=== PATIENT | female | born 2005 | race Hispanic/Latino ===

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

== ENCOUNTER 2025-03-11 23:37 | Emergency (ER) | payer OTHER ==
--- OUTSIDE RECORDS SUMMARY | 2025-03-11 23:47 | XMS REPORT | Continuity of Care Document ---
Author Name Unknown Address [address] [place] [address] [address] [place] [address] [facility] Address [address] [facility] [address] [place] [address] Care Team Providers Care Executive Cyber Leader Name Role Phone Farhana Cronin Primary Care Physician Allergies, Adverse Reactions, Alerts Allergy Name Allergy Type Status Severity Reaction(s) Onset Date Inactive Date Treating Clinician Comments Source Sea Food (Not Checked) Propensi ty to adverse reaction to drug Inactiv e 07-03 00:00: 00 Dionisio Hamm Medications Ordered Medication Name Filled Medication Name Start Date Stop Date Current Medication? Ordering Clinician Indication Dosage Frequency Signature (SIG) Comments Components Source omeprazole 40 mg capsule,del ayed release 4-11 00:00: 00 Yes 1mg Dionisio Hamm cetirizine 10 mg tablet 18 00:00: 00 Yes 1mg Dionisio Hamm Flonase Allergy Relief 50 mcg/actuati on nasal spray,suspe nsion 18 00:00: 00 Yes 12mcg/a ctuatio n Dionisio Hamm spironolact one 25 mg tablet 2023-11 00:00: 00 Yes 1mg Dionisio Hamm doxycycline monohydrate 100 mg capsule 2023-11 0 00:00: 00 Yes 1mg Dionisio Hamm metronidazo le 500 mg tablet - 00:00: 00 Yes 1mg Dionisio Hamm TAKE 10 ML EVERY 6-8 HOURS FOR COUGH AND CONGESTION 2021-11- 00:00: 00 No TAKE 10 ML EVERY 6-8 HOURS FOR COUGH AND CONGESTION 2021-11 00:00: 00 Yes Dionisio Hamm CETIRIZINE TAB 10MG 2021-11 00:00: 00 No FLUTICASONE SPR 50MCG 2021-11 00:00: 00 No CETIRIZINE TAB 10MG 2021-11 00:00: 00 Yes Dionisio Hamm FLUTICASONE SPR 50MCG 2021-11 00:00: 00 Yes Dionisio Hamm erythromyci n 5 mg/gram (0.5 %) eye ointment 01-26 00:00: 00 No 1(0.5 %) erythromyci n 5 mg/gram (0.5 %) eye ointment 01-26 00:00: 00 No 1(0.5 %) erythromyci n 5 mg/gram (0.5 %) eye ointment 01-26 00:00: 00 Yes 1(0.5 %) Dionisio Hamm Augmentin 500 mg-125 mg tablet 12-31 00:00: 00 No 1mg Augmentin 500 mg-125 mg tablet 12-31 00:00: 00 No 1mg Augmentin 500 mg-125 mg tablet 12-31 00:00: 00 Yes 1mg Dionisio Hamm amoxicillin 400 mg/5 mL oral suspension 01-21 00:00: 00 No 1mg/5 mL amoxicillin 400 mg/5 mL oral suspension 01-21 00:00: 00 No 1mg/5 mL amoxicillin 400 mg/5 mL oral suspension 01-21 00:00: 00 Yes 1mg/5 mL Dionisio Treviño Hansel amoxicillin 400 mg/5 mL oral suspension 04-09 00:00: 00 No 5mg/5 mL amoxicillin 400 mg/5 mL oral suspension 04-09 00:00: 00 No 5mg/5 mL amoxicillin 400 mg/5 mL oral suspension 04-09 00:00: 00 Yes 5mg/5 mL Dionisio Hamm Immunizations Ordered Immunization Name Filled Immunization Name Date Status Comments Source meningococcal MCV4P meningococcal MCV4P 00:00:00 Completed Dionisio Hamm meningococcal MCV4P 2021-07-03 00:00:00 Completed meningococcal MCV4P 2021-07-03 00:00:00 Completed HPV9 HPV9 2019-07-18 00:00:00 Completed Dionisio Hamm HPV9 2019-07-18 00:00:00 Completed HPV9 2019-07-18 00:00:00 Completed Tdap Tdap 2017-07-15 00:00:00 Completed Dionisio Hamm HPV, quadrivalent HPV, quadrivalent 2017-07-15 00:00:00 Completed Dionisio Hamm meningococcal MCV4P meningococcal MCV4P 00:00:00 Completed Dionisio Hamm Tdap 2017-07-15 00:00:00 Completed HPV, quadrivalent 2017-07-15 00:00:00 Completed meningococcal MCV4P 2017-07-15 00:00:00 Completed Tdap 2017-07-15 00:00:00 Completed HPV, quadrivalent 2017-07-15 00:00:00 Completed meningococcal MCV4P 2017-07-15 00:00:00 Completed Hep A, ped/adol, 2 dose Hep A, ped/adol, 2 dose 2009-08-27 00:00:00 Completed Dionisio Hamm Influenza, seasonal, inj Influenza, seasonal, inj 2009-08-27 00:00:00 Completed Dionisio Hamm varicella varicella 2009-08-27 00:00:00 Completed Dionisio Hamm Hep A, ped/adol, 2 dose 2009-08-27 00:00:00 Completed Influenza, seasonal, inj 2009-08-27 00:00:00 Completed varicella 2009-08-27 00:00:00 Completed Hep A, ped/adol, 2 dose 2009-08-27 00:00:00 Completed Influenza, seasonal, inj 2009-08-27 00:00:00 Completed varicella 2009-08-27 00:00:00 Completed DTaP DTaP 2009-07-25 00:00:00 Completed Dionisio Hamm MMR MMR 2009-07-25 00:00:00 Completed Dionisio Hamm Pneumococcal conjugate P Pneumococcal conjugate P 2009-07-25 00:00:00 Completed Dionisio Hamm IPV IPV 2009-07-25 00:00:00 Completed Dionisio Hamm DTaP 2009-07-25 00:00:00 Completed MMR 2009-07-25 00:00:00 Completed Pneumococcal conjugate P 2009-07-25 00:00:00 Completed IPV 2009-07-25 00:00:00 Completed DTaP 2009-07-25 00:00:00 Completed MMR 2009-07-25 00:00:00 Completed Pneumococcal conjugate P 2009-07-25 00:00:00 Completed IPV 2009-07-25 00:00:00 Completed Hep A, ped/adol, 2 dose Hep A, ped/adol, 2 dose 2007-12-23 00:00:00 Completed Dionisio Hamm Hep A, ped/adol, 2 dose 2007-12-23 00:00:00 Completed Hep A, ped/adol, 2 dose 2007-12-23 00:00:00 Completed DTaP DTaP 2006-05-19 00:00:00 Completed Dionisio Hamm Hib (PRP-OMP) Hib (PRP-OMP) 2006-05-19 00:00:00 Completed Dionisio Hamm MMRV MMRV 2006-05-19 00:00:00 Completed Dionisio Hamm Pneumococcal conjugate P Pneumococcal conjugate P 2006-05-19 00:00:00 Completed Dionisio Hamm DTaP 2006-05-19 00:00:00 Completed Hib (PRP-OMP) 2006-05-19 00:00:00 Completed MMRV 2006-05-19 00:00:00 Completed Pneumococcal conjugate P 2006-05-19 00:00:00 Completed DTaP 2006-05-19 00:00:00 Completed Hib (PRP-OMP) 2006-05-19 00:00:00 Completed MMRV 2006-05-19 00:00:00 Completed Pneumococcal conjugate P 2006-05-19 00:00:00 Completed DTaP-Hep B-IPV DTaP-Hep B-IPV 2005-06-23 00:00:00 Completed Dionisio Hamm Hib (PRP-OMP) Hib (PRP-OMP) 2005-06-23 00:00:00 Completed Dionisio Hamm Pneumococcal conjugate P Pneumococcal conjugate P 2005-06-23 00:00:00 Completed Dionisio Hamm DTaP-Hep B-IPV 2005-06-23 00:00:00 Completed Hib (PRP-OMP) 2005-06-23 00:00:00 Completed Pneumococcal conjugate P 2005-06-23 00:00:00 Completed DTaP-Hep B-IPV 2005-06-23 00:00:00 Completed Hib (PRP-OMP) 2005-06-23 00:00:00 Completed Pneumococcal conjugate P 2005-06-23 00:00:00 Completed DTaP-Hep B-IPV DTaP-Hep B-IPV 2005-04-22 00:00:00 Completed Dionisio Hamm Hib (PRP-OMP) Hib (PRP-OMP) 2005-04-22 00:00:00 Completed Dionisio Kamila Hamm Pneumococcal conjugate P Pneumococcal conjugate P 2005-04-22 00:00:00 Completed Dionisio Hamm DTaP-Hep B-IPV 2005-04-22 00:00:00 Completed Hib (PRP-OMP) 2005-04-22 00:00:00 Completed DTaP-Hep B-IPV 2005-04-22 00:00:00 Completed Hib (PRP-OMP) 2005-04-22 00:00:00 Completed Pneumococcal conjugate P 2005-04-22 00:00:00 Completed Pneumococcal conjugate P 2005-04-22 00:00:00 Completed DTaP-Hep B-IPV DTaP-Hep B-IPV 2005-02-17 00:00:00 Completed Dionisio Hamm Hib (PRP-OMP) Hib (PRP-OMP) 2005-02-17 00:00:00 Completed Dionisio Kamila Hamm Pneumococcal conjugate P Pneumococcal conjugate P 2005-02-17 00:00:00 Completed Dionisio Hamm Hib (PRP-OMP) 2005-02-17 00:00:00 Completed Pneumococcal conjugate P 2005-02-17 00:00:00 Completed DTaP-Hep B-IPV 2005-02-17 00:00:00 Completed Hib (PRP-OMP) 2005-02-17 00:00:00 Completed Pneumococcal conjugate P 2005-02-17 00:00:00 Completed DTaP-Hep B-IPV 2005-02-17 00:00:00 Completed Hep B, adolescent or ped Hep B, adolescent or ped 2004 00:00:00 Completed Dionisio Hamm Hep B, adolescent or ped 2004 00:00:00 Completed Hep B, adolescent or ped 2004 00:00:00 Completed Vital Signs Vital Name Observation Time Observation Value Comments Re haney BP Systolic 2025-03-10 17:45:00 123 mm[Hg] Dennis Hamm BP Diastolic 2025-03-10 17:45:00 80 mm[Hg] Justin Hamm Weight Measured 2025-03-10 17:45:00 139.60 pounds Dionisio Hamm Height Measured 2025-03-10 17:45:00 62.50 inches Dionisio F Hansel Body Temperature 2025-03-10 17:45:00 98.50 degrees Dionisio F Hansel Heart Rate 2025-03-10 17:45:00 82.00 /min Paulina en F Hansel Respiratory Rate 2025-03-10 17:45:00 18.00 /min Dionisio F Hansel BP Systolic 2025-01-16 18:03:00 128 mm[Hg] Step hen F Hansel BP Diastolic 2025-01-16 18:03:00 85 mm[Hg] Justin phen F Hansel Weight Measured 2025-01-16 18:03:00 140.60 pounds Dionisio F Hansel Height Measured 2025-01-16 18:03:00 62.50 inches Dionisio F Hansel Body Temperature 2025-01-16 18:03:00 98.20 degrees Dionisio F Hansel Heart Rate 2025-01-16 18:03:00 81.00 /min Paulina en F Hansel Respiratory Rate 2025-01-16 18:03:00 18.00 /min Dionisio F Hansel BP Systolic 2024-09-20 15:23:00 121 mm[Hg] Step hen F Hansel BP Diastolic 2024-09-20 15:23:00 81 mm[Hg] Justin phen F Hansel Weight Measured 2024-09-20 15:23:00 129.20 pounds Dionisio F Hansel Height Measured 2024-09-20 15:23:00 62.50 inches Dionisio F Hansel Body Temperature 2024-09-20 15:23:00 97.90 degrees Dionisio F Hansel Heart Rate 2024-09-20 15:23:00 72.00 /min Paulina en F Hansel Respiratory Rate 2024-09-20 15:23:00 18.00 /min Dionisio F Hansel Body Temperature 2024-04-02 12:58:00 98.20 degrees Dionisio F Hansel Heart Rate 2024-04-02 12:58:00 71.00 /min Paulina en F Hansel Respiratory Rate 2024-04-02 12:58:00 16.00 /min Dionisio F Hansel BP Systolic 2024-04-02 12:58:00 129 mm[Hg] Step hen F Hansel BP Diastolic 2024-04-02 12:58:00 84 mm[Hg] Justin phen F Hansel Weight Measured 2024-04-02 12:58:00 121.20 pounds Dionisio F Hansel Height Measured 2024-04-02 12:58:00 62.50 inches Dionisio F Hansel BP Systolic 2022-10-20 16:31:00 114 mm[Hg] Step hen F Hansel BP Diastolic 2022-10-20 16:31:00 74 mm[Hg] Justin phen F Hansel Weight Measured 2022-10-20 16:31:00 117.60 pounds Dionisio F Hansel Height Measured 2022-10-20 16:31:00 62.50 inches Dionisio F Hansel Body Temperature 2022-10-20 16:31:00 97.80 degrees Dionisio F Hansel Heart Rate 2022-10-20 16:31:00 75.00 /min Paulina en F Hansel Respiratory Rate 2022-10-20 16:31:00 Dionisio F Hansel BP Systolic 2022-08-28 10:16:00 121 mm[Hg] Step hen F Hansel BP Diastolic 2022-08-28 10:16:00 77 mm[Hg] Justin phen F Hansel Weight Measured 2022-08-28 10:16:00 119.00 pounds Dionisio F Hansel Height Measured 2022-08-28 10:16:00 65.40 inches Dionisio F Hansel Body Temperature 2022-08-28 10:16:00 98.20 degrees Dionisio F Hansel Heart Rate 2022-08-28 10:16:00 94.00 /min Paulina en F Hansel Respiratory Rate 2022-08-28 10:16:00 18.00 /min Dionisio F Hansel BP Systolic 2021-07-03 10:01:00 111 mm[Hg] Step hen F Hansel BP Diastolic 2021-07-03 10:01:00 72 mm[Hg] Jsutin phen F Hansel Weight Measured 2021-07-03 10:01:00 117.00 pounds Dionisio F Hansel Height Measured 2021-07-03 10:01:00 62.40 inches Dionisio F Hansel Body Temperature 2021-07-03 10:01:00 98.70 degrees Dionisio F Hansel Heart Rate 2021-07-03 10:01:00 80.00 /min Paulina en F Hansel Respiratory Rate 2021-07-03 10:01:00 Dionisio F Hansel BP Systolic 2020-01-26 08:42:00 119 mm[Hg] Step hen F Hansel BP Diastolic 2020-01-26 08:42:00 77 mm[Hg] Justin phen F Hansel Weight Measured 2020-01-26 08:42:00 117.00 pounds Dionisio F Hansel Height Measured 2020-01-26 08:42:00 62.20 inches Dionisio F Hansel Body Temperature 2020-01-26 08:42:00 99.10 degrees Dionisio F Hansel Heart Rate 2020-01-26 08:42:00 76.00 /min Paulina en F Hansel Respiratory Rate 2020-01-26 08:42:00 16.00 /min Dionisio F Hansel Body Temperature 2019-09-26 14:56:00 98.50 degrees Dionisio F Hansel Heart Rate 2019-09-26 14:56:00 84.00 /min Paulina en F Hansel Respiratory Rate 2019-09-26 14:56:00 Dionisio F Hansel BP Systolic 2019-09-26 14:56:00 111 mm[Hg] Step hen F Hansel BP Diastolic 2019-09-26 14:56:00 75 mm[Hg] Justin phen F Hansel Weight Measured 2019-09-26 14:56:00 110.80 pounds Dionisio F Hansel Height Measured 2019-09-26 14:56:00 62.40 inches Dionisio F Hansel BP Systolic 2019-07-18 15:48:00 110 mm[Hg] Step hen F Hansel BP Diastolic 2019-07-18 15:48:00 79 mm[Hg] Justin phen F Hansel Weight Measured 2019-07-18 15:48:00 109.00 pounds Dionisio F Hansel Height Measured 2019-07-18 15:48:00 62.01 inches Dionisio F Hansel Body Temperature 2019-07-18 15:48:00 98.10 degrees Dionisio F Hansel Heart Rate 2019-07-18 15:48:00 74.00 /min Paulina en F Hansel Respiratory Rate 2019-07-18 15:48:00 18.00 /min Dionisio F Hansel BP Systolic 2018-12-31 13:50:00 126 mm[Hg] Step hen F Hansel BP Diastolic 2018-12-31 13:50:00 84 mm[Hg] Justin phen F Hansel Weight Measured 2018-12-31 13:50:00 110.40 pounds Dionisio F Hansel Height Measured 2018-12-31 13:50:00 62.00 inches Dionisio F Hansel Body Temperature 2018-12-31 13:50:00 98.50 degrees Dionisio F Hansel Heart Rate 2018-12-31 13:50:00 87.00 /min Paulina en F Hansel Respiratory Rate 2018-12-31 13:50:00 18.00 /min Dionisio F Hansel BP Systolic 2018-07-27 16:12:00 118 mm[Hg] Step hen F Hansel BP Diastolic 2018-07-27 16:12:00 63 mm[Hg] Justin phen F Hansel Weight Measured 2018-07-27 16:12:00 104.60 pounds Dionisio F Hansel Height Measured 2018-07-27 16:12:00 62.00 inches Dionisio F Hansel Body Temperature 2018-07-27 16:12:00 98.20 degrees Dionisio F Hansel Heart Rate 2018-07-27 16:12:00 76.00 /min Paulina en F Hansel Respiratory Rate 2018-07-27 16:12:00 18.00 /min Dionisio F Hansel BP Systolic 2018-01-21 16:44:00 115 mm[Hg] Step hen F Hansel BP Diastolic 2018-01-21 16:44:00 73 mm[Hg] Justin phen F Hansel Weight Measured 2018-01-21 16:44:00 105.60 pounds Dionisio F Hansel Height Measured 2018-01-21 16:44:00 61.00 inches Dionisio F Hansel Body Temperature 2018-01-21 16:44:00 98.40 degrees Dionisio F Hansel Heart Rate 2018-01-21 16:44:00 84.00 /min Paulina en F Hansel Respiratory Rate 2018-01-21 16:44:00 16.00 /min Dionisio F Hansel BP Systolic 2017-07-15 10:30:00 122 mm[Hg] BP Diastolic 2017-07-15 10:30:00 81 mm[Hg] Weight Measured 2017-07-15 10:30:00 98.60 pounds Height Measured 2017-07-15 10:30:00 60.00 inches Body Temperature 2017-07-15 10:30:00 98.10 degrees Heart Rate 2017-07-15 10:30:00 101.00 /min Respiratory Rate 2017-07-15 10:30:00 16.00 /min Weight Measured 2017-04-09 11:14:00 98.60 pounds Height Measured 2017-04-09 11:14:00 60.00 inches Body Temperature 2017-04-09 11:14:00 98.50 degrees Heart Rate 2017-04-09 11:14:00 94.00 /min Respiratory Rate 2017-04-09 11:14:00 18.00 /min BP Systolic 2017-04-09 11:14:00 114 mm[Hg] BP Diastolic 2017-04-09 11:14:00 78 mm[Hg] Plan of Care Planned Activity Planned Date Details Comments Source Goal Plan of Care Note [code = 21028-6] Goal Plan of Care Note [code = 15177-2] Goal Plan of Care Note [code = 72716-1] Goal Plan of Care Note [code = 24456-7] Goal Plan of Care Note [code = 31665-4] Goal Plan of Care Note [code = 46299-4] Goal Plan of Care Note [code = 72923-9] Goal Plan of Care Note [code = 83678-2] Goal Plan of Care Note [code = 92238-5] Goal Plan of Care Note [code = 56075-9] Goal Plan of Care Note [code = 40048-6] Goal Plan of Care Note [code = 92153-0] Goal Plan of Care Note [code = 44385-0] Goal Plan of Care Note [code = 45034-6] Goal Plan of Care Note [code = 95786-2] Goal Plan of Care Note [code = 15428-3] Goal Plan of Care Note [code = 36982-2] Goal Plan of Care Note [code = 83795-7] Goal Plan of Care Note [code = 46440-7] Goal Plan of Care Note [code = 29559-5] Goal Plan of Care Note [code = 73124-2] Goal Plan of Care Note [code = 81491-4] Goal Plan of Care Note [code = 89710-5] Goal Plan of Care Note [code = 25360-9] Goal Plan of Care Note [code = 28287-3] Goal Plan of Care Note [code = 09213-6] Goal Plan of Care Note [code = 13884-4] Goal Plan of Care Note [code = 55911-0] Goal Plan of Care Note [code = 51600-6] Goal Plan of Care Note [code = 39449-5] Encounters Start Date/Time End Date/Time Encounter Type Admission Type Attending [facility] Care Department Encounter ID Source 2025-03-11 11:36:11 2025-03-11 11:36:11 Outpatient [facility] [id number] Dionisio Hamm 2025-03-10 17:42:29 2025-03-10 17:42:29 Outpatient S[facility] [id number] Dionisio Hamm 2025-03-10 00:00:00 2025-03-10 00:00:00 Outpatient Visit SFA [id number] Dionisio Hamm 2025-01-16 17:54:35 2025-01-16 17:54:35 Outpatient SFA [facility] [id number] Dionisio Hamm 2025-01-16 00:00:00 2025-01-16 00:00:00 Outpatient Visit SFA [id number] Dionisio Hamm 2024-09-20 15:22:54 2024-09-20 15:22:54 Outpatient S[facility] [id number] Dionisio Hamm 2024-04-02 12:45:17 2024-04-02 12:45:17 Outpatient S[facility] [id number] Dionisio Hamm 2024-04-02 00:00:00 2024-04-02 00:00:00 Outpatient Visit SFA [id number] Dionisio Hamm 2022-10-20 16:34:13 2022-10-20 16:34:13 Outpatient SFA S[facility] [id number] Dionisio Hamm 2022-10-07 16:22:05 2022-10-07 16:22:05 Outpatient SFA S[facility] [id number] Dionisio Hamm 2022-10-07 00:00:00 2022-10-07 00:00:00 Outpatient Visit [id number] 2022-08-28 00:00:00 2022-08-28 00:00:00 Outpatient Visit [id number] Results Test Description Test Time Test Comments Results Result Co mments Source VAGINAL PATHOGENS DNA [id number] 11:20:23* Test Item Value Reference Range Interpretation Comme nts SAMIRA SPECIES (test code = ) NEGATIVE NEGATIVE G. VAGINALIS (test code = 62935) POSITIVE NEGATIVE A T. VAGINALIS (test code = 11673) NEGATIVE NEGATIVE Note: [facility] VPIII Microbial Identification Testis a DNA probe test intended for use in the detectionand identification of Samira species, Gardnerellavaginalis and Trichomonas vaginalis nucleic acid. VAGINAL PATHOGENS DNA [id number] 00:00:00* Test Item Value Reference Range Interpretation Comme nts SAMIRA SPECIES (test code = ) NEGATIVE G. VAGINALIS (test code = 72845) POSITIVE T. VAGINALIS (test code = 17676) NEGATIVE Dionisio F AustinCT/NG, NAAT, [id number] 00:00:00* Test Item Value Reference Range Interpretation Comme nts CHLAMYDIA, NAAT, URINE (test code = 81588) NEGATIVE GONORRHEA, NAAT, URINE (test code = 81841) NEGATIVE Dionisio Kamila AustinVAGINAL PATHOGENS DNA [id number] 00:00:00* Test Item Value Reference Range Interpretation Comme nts SAMIRA SPECIES (test code = 33559) NEGATIVE G. VAGINALIS (test code = 80657) POSITIVE T. VAGINALIS (test code = 21600) NEGATIVE Dionisio F AustinCT/NG, NAAT, [id number] 00:00:00* Test Item Value Reference Range Interpretation Comme nts CHLAMYDIA, NAAT, URINE (test code = 27144) NEGATIVE GONORRHEA, NAAT, URINE (test code = 82210) NEGATIVE Dionisio F AustinVAGINAL PATHOGENS DNA [id number] 00:00:00* Test Item Value Reference Range Interpretation Comme nts SAMIRA SPECIES (test code = 35517) NEGATIVE G. VAGINALIS (test code = 63140) POSITIVE T. VAGINALIS (test code = 15164) NEGATIVE Dionisio HammCT/NG, NAAT, [id number] 00:00:00* Test Item Value Reference Range Interpretation Comme nts CHLAMYDIA, NAAT, URINE (test code = 79041) NEGATIVE GONORRHEA, NAAT, URINE (test code = 91329) NEGATIVE Dionisio Hamm Notes Date/Time Note Provider Source Dionisio Hamm [facility]2025-02-17 00:00:[address] [facility]2024-05-04 00:00:[address] [facility]
[2025-03-12] MEDS ORDERED: NA CHLORIDE 0.9% 1,000 ML ONE (00:14)
[2025-03-12 00:38] LABS: Absolute Eosinophils 0.1 K/uL (0-0.5); Absolute Lymphocytes (CBC) 1.8 K/uL (0.7-4.9); Absolute Monocytes 0.4 K/uL (0.1-1.3); Absolute Neutrophil 6.8 K/uL (1.8-8.0); Basophils % 0.4 % (0-1.3); Eosinophils % 1.3 % (0-4.4); Hematocrit 40.9 % (36.0-45.0); Hemoglobin 14.1 g/dL (12.0-15.0); Lymphocytes % 19.3 % (15.3-44.8); MCH 29.7 pg (27.0-35.0); MCHC 34.4 g/dL (32.0-36.0); MCV 86.3 fL (80-100); MPV 10.3 fL (7.6-11.3); Monocytes % 4.8 % (3.3-12.3); Neutrophils % 74.2 % (41.7-73.7); Nucleated Red Blood Cells % 0.1 % (0-0); Platelets 233 thou/uL (152-406); RBC Red Blood Cell Count 4.74 M/uL (3.86-4.86); Red Cell Distribution Width 13.1 % (12.1-15.2)
[2025-03-12 00:55] LABS: Albumin 4.3 g/dL (3.4-5.0); Albumin/Globulin Ratio 1.1 (1.1-1.8); Anion Gap 9.4 mEq/L (5.0-15.0); Bilirubin Total 0.7 mg/dL (0.2-1.0); Globulin 3.8 g/dL (2.3-3.5); Potassium 3.4 mEq/L (3.5-5.1); Protein, Total 8.1 g/dL (6.4-8.2)
[2025-03-12 01:03] LABS: Specific Gravity 1.006 (1.005-1.030); Sqamous Epithelial <5 /HPF (None Seen); Urine Bacteria <20 /HPF (<20); Urine Bilirubin NEGATIVE (Negative); Urine Blood Negative (Negative); Urine Clarity Turbid (Clear); Urine Color Colorless (Yellow); Urine Crystals Unidentified Few /HPF (None Seen); Urine Culture Reflex Order NOT NEEDED; Urine Glucose NEGATIVE (Negative); Urine Ketones 1+ (Negative); Urine Microscopic Reflex YN ORDER UMIC; Urine Mucus Slight /HPF (None Seen); Urine Nitrite NEGATIVE (Negative); Urine Protein NEGATIVE (Negative); Urine RBC <5 /HPF (None Seen); Urine Urobilinogen Normal (Normal); Urine WBC <5 /HPF (<5); Urine WBC Clump Rare /HPF (None Seen); Urine Yeast (Budding) Trace /HPF (None Seen)
[2025-03-12 01:04] LABS: Specific Gravity 1.006 (1.005-1.030)
--- NOTE | 2025-03-12 01:19 | RAD REPORT ---
EXAM DESCRIPTION: Abdomen Exam Limited RadLex: US ABDOMEN LIMITED CLINICAL HISTORY: 19 years Female, RUQ;Abd pain COMPARISON: None. FINDINGS: Limited grayscale images of the gallbladder were obtained. No shadowing gallstones. No wall thickenin g or pericholecystic fluid collections. IMPRESSION: No sonographic abnormality of the gallbladder. Electronically signed by: Hafsa Silva MD 03/12/2025 01:15 AM CDT RP Due to temporary technical issues with the PACS/Oyster scribe reporting system, reports are being sign ed by the in-house radiologist without review as a courtesy to ensure prompt reporting the interpreting rad iologist is fully responsible for the content of the report. Transcribed Date/Time: 03/12/2025 1:19 AM
--- NOTE | 2025-03-12 03:41 | ER ---
Nurse's Notes [facility] Name: Alexa Alexander Age: 19 yrs Sex: Female : 2005 Arrival Date: 03/11/2025 Time: 23:37 Bed 5 Private MD: Diagnosis: Abdominal pain Presentation: 03/11 23:49 Chief complaint: Patient states: MID EPIGASTRIC AND RIGHT UPPER QUADRANT PAIN. NAUSEA. ha1 23:49 Coronavirus screen: Client denies travel out of the [place] in the last 14 days. Ebola ha1 Screen: No symptoms or risks identified at this time. Initial Sepsis Screen: Does the patient meet any 2 criteria? No. Patient's initial sepsis screen is negative. Initial Sepsis Screen: Does the patient have a suspected source of infection? No. Patient's initial sepsis screen is negative. Risk Assessment: Do you want to hurt yourself or someone else? Patient reports no desire to harm self or others. 23:49 Method Of Arrival: Ambulatory ha1 03/12 03:50 Onset of symptoms was March 11, 2025. cp4 03:50 Acuity: PHUONG 3 cp4 Triage Assessment: 00:11 General: Appears uncomfortable, Behavior is calm, cooperative. Pain: Complains of pain ha1 in epigastric area and right upper quadrant Pain currently is 8 out of 10 on a pain scale. Quality of pain is described as aching. Neuro: Level of Consciousness is awake, alert, obeys commands, Oriented to person, place, time, situation. Cardiovascular: Capillary refill < 3 seconds Patient's skin is warm and dry. Respiratory: Airway is patent Respiratory effort is even, unlabored, Respiratory pattern is regular, symmetrical. GI: Abdomen is round non-distended, Reports upper abdominal pain, epigastric pain, nausea. MOTHER REPAIRER: 03:50 Not cp4 Historical: - Allergies: 00:11 No Known Allergies; ha1 - PMHx: 00:11 None; ha1 - Immunization history:: Adult Immunizations up to date. - Infectious Disease History:: Denies. - Social history:: Smoking status: Patient denies any tobacco usage or history of. Screenin:13 Abuse screen: Denies threats or abuse. Denies injuries from another. Nutritional ha1 screening: No deficits noted. Tuberculosis screening: No symptoms or risk factors identified. 00:16 [facility] ED Fall Risk Assessment (Adult) History of falling in the last 3 months, cp4 including since admission No falls in past 3 months (0 pts) Confusion or Disorientation No (0 pts) Intoxicated or Sedated No (0 pts) Impaired Gait No (0 pts) Mobility Assist Device Used No (0 pt) Altered Elimination No (0 pt) Score/Fall Risk Level 0 - 2 = Low Risk Oriented to surroundings, Maintained a safe environment, Assessed \T\ reinforced patient's understanding of fall precautions, Hourly rounding (assess needs \T\ fall precautionary measures) done. Assessment: 00:16 General: Appears in no apparent distress. comfortable, Behavior is calm, cooperative, cp4 appropriate for age. Pain: Complains of pain in abdomen and right upper quadrant and epigastric area Pain does not radiate. Pain currently is 6 out of 10 on a pain scale. Neuro: Level of Consciousness is awake, alert, obeys commands, Oriented to person, place, time, situation. Cardiovascular: Patient's skin is warm and dry. Respiratory: Airway is patent Respiratory effort is even, unlabored. GI: Bowel sounds present X 4 quads. Abd is soft and non tender X 4 quads. Reports epigastric pain, nausea. : No signs and/or symptoms were reported regarding the genitourinary system. EENT: No signs and/or symptoms were reported regarding the EENT system. Derm: No signs and/or symptoms reported regarding the dermatologic system. Musculoskeletal: No signs and/or symptoms reported regarding the musculoskeletal system. Vital Signs: 03/11 23:49 BP 129 / 92; Pulse 96; Resp 18 S; Temp 98.2(O); Pulse Ox 100% on R/A; Weight 63.5 kg; ha1 Height 5 ft. 3 in. ; 03/12 01:25 BP 129 / 92; Pulse 83; Resp 18; Pulse Ox 100% ; cp4 02:00 BP 109 / 57; Pulse 92; Resp 17; Pulse Ox 99% ; jj7 03:15 BP 181 / 89; Pulse 77; Resp 19; Pulse Ox 98% ; jj7 03:49 BP 121 / 71; Pulse 79; Resp 18; Pulse Ox 99% ; cp4 03/11 23:49 Body Mass Index 24.80 (63.50 kg, 160.02 cm) [facility] ED Course: 03/11 23:38 Patient arrived in ED. rg4 23:50 Talia Sanders MD is Attending Physician. sp3 03/12 00:05 Kevin Dyer, RN is Primary Nurse. jj7 00:16 Bed in low position. Call light in reach. Side rails up X 1. cp4 00:16 No provider procedures requiring assistance completed. Initial lab(s) drawn, by nc, cp4 sent to lab. Urine collected: clean catch specimen, clear. Inserted saline lock: 20 gauge in left antecubital area, using aseptic technique. Blood collected. Flushed with 10 mL NS. 00:32 Abdomen Limited US In Process Unspecified. EDMS 01:11 CT Abd/Pelvis - IV Contrast Only In Process Unspecified. EDMS 03:49 Provided Education on: abdominal pain. cp4 03:49 intact, bleeding controlled, No redness/swelling at site. Pressure dressing applied. cp4 03:50 Triage completed. cp4 03:50 Arm band placed on right wrist. Patient placed in waiting room. cp4 Administered Medications: 00:15 Drug: NS 0.9% IV 1000 ml IV at 1 bolus Per protocol; to be given as a bolus over 60 cp4 minutes Route: IV; Rate: 1 bolus; Site: left antecubital; 03:51 Follow up: IV Status: Completed infusion cp4 Medication: 00:16 VIS not applicable for this client. cp4 Outcome: 03:39 Discharge ordered by MD. sp3 03:49 Discharged to home ambulatory, cp4 03:49 Condition: stable 03:49 Discharge instructions given to patient, family, Instructed on discharge instructions, follow up and referral plans. medication usage, Demonstrated understanding of instructions, follow-up care, medications, Prescriptions given X 1, 03:51 Patient left the ED. cp4 Signatures: Dispatcher [employer] EDIN Kathy Hernandez rg4 Talia Sanders MD MD sp3 Lilia Trotter, RN RN ha1 Kevin Dyer, RAQUEL RN Kiya Nguyen cp4
--- NOTE | 2025-03-12 03:41 | EDPHYS ---
Physician Documentation [facility] Name: Alexa Alexander Age: 19 yrs Sex: Female : 2005 Arrival Date: 03/11/2025 Time: 23:37 Bed 5 Private MD: ED Physician Talia Sanders HPI: 03/12 00:20 This 19 yrs old Female presents to ER via Ambulatory with complaints of sp3 Abdominal Pain. 00:20 19-year-old female with no past medical history presents with 5 days of epigastric pain sp3 radiating to the right upper quadrant around to her back. She denies any vomiting or diarrhea but does endorse nausea. She also denies fever, headache, chest pain, shortness of breath, lower abdominal pain, SUPERINTENDENT TERMINAL symptoms, symptoms including urinary frequency and dysuria. No history of kidney stone or other surgeries. ROS otherwise negative.. AMMUNITION OFFICER: 03:50 Not cp4 Historical: - Allergies: 00:11 No Known Allergies; ha1 - PMHx: 00:11 None; ha1 - Immunization history:: Adult Immunizations up to date. - Infectious Disease History:: Denies. - Social history:: Smoking status: Patient denies any tobacco usage or history of. ROS: 00:20 Constitutional: Negative for fever, chills, and weight loss, Eyes: Negative for injury, sp3 pain, redness, and discharge, ENT: Negative for injury, pain, and discharge, Neck: Negative for injury, pain, and swelling, Cardiovascular: Negative for chest pain, palpitations, and edema, Respiratory: Negative for shortness of breath, cough, wheezing, and pleuritic chest pain, Back: Negative for injury and pain, : Negative for injury, bleeding, discharge, and swelling, MS/Extremity: Negative for injury and deformity, Skin: Negative for injury, rash, and discoloration, Neuro: Negative for headache, weakness, numbness, tingling, and seizure, Psych: Negative for depression, anxiety, suicide ideation, homicidal ideation, and hallucinations, Allergy/Immunology: Negative for hives, rash, and allergies, Endocrine: Negative for neck swelling, polydipsia, polyuria, polyphagia, and marked weight changes, Hematologic/Lymphatic: Negative for swollen nodes, abnormal bleeding, and unusual bruising, 00:20 All other systems are negative, Exam: 00:20 Constitutional: This is a well developed, well nourished patient who is awake, alert, sp3 and in no acute distress. Head/Face: Normocephalic, atraumatic. Eyes: Pupils equal round and reactive to light, extra-ocular motions intact. Lids and lashes normal. Conjunctiva and sclera are non-icteric and not injected. Cornea within normal limits. Periorbital areas with no swelling, redness, or edema. ENT: Nares patent. No nasal discharge, no septal abnormalities noted. External auditory canals are clear. Oropharynx with no redness, swelling, or masses, exudates, or evidence of obstruction, uvula midline. Mucous membranes moist. Neck: Trachea midline, no thyromegaly or masses palpated, and no cervical lymphadenopathy. Supple, full range of motion without nuchal rigidity, or vertebral point tenderness. No Meningismus. Chest/axilla: Normal chest wall appearance and motion. Nontender with no deformity. No lesions are appreciated. Cardiovascular: Regular rate and rhythm with a normal S1 and S2. No gallops, murmurs, or rubs. Normal PMI, no JVD. No pulse deficits. Respiratory: Lungs have equal breath sounds bilaterally, clear to auscultation and percussion. No rales, rhonchi or wheezes noted. No increased work of breathing, no retractions or nasal flaring. Back: No spinal tenderness. No costovertebral tenderness. Full range of motion. Skin: Warm, dry with normal turgor. Normal color with no rashes, no lesions, and no evidence of cellulitis. MS/ Extremity: Pulses equal, no cyanosis. Neurovascular intact. Full, normal range of motion. Neuro: Awake and alert, GCS 15, oriented to person, place, time, and situation. Cranial nerves II-XII grossly intact. Motor strength 5/5 in all extremities. Sensory grossly intact. Cerebellar exam normal. Normal gait. Psych: Awake, alert, with orientation to person, place and time. Behavior, mood, and affect are within normal limits. 00:20 Abdomen/GI: Right upper quadrant abdominal pain to palpation without peritoneal signs, rebound or guarding. Positive Wharton sign on my exam., Vital Signs: 03/11 23:49 BP 129 / 92; Pulse 96; Resp 18 S; Temp 98.2(O); Pulse Ox 100% on R/A; Weight 63.5 kg; ha1 Height 5 ft. 3 in. ; 03/12 01:25 BP 129 / 92; Pulse 83; Resp 18; Pulse Ox 100% ; cp4 02:00 BP 109 / 57; Pulse 92; Resp 17; Pulse Ox 99% ; jj7 03:15 BP 181 / 89; Pulse 77; Resp 19; Pulse Ox 98% ; jj7 03:49 BP 121 / 71; Pulse 79; Resp 18; Pulse Ox 99% ; cp4 03/11 23:49 Body Mass Index 24.80 (63.50 kg, 160.02 cm) ha1 MDM: 03/11 23:57 Medical Screening Exam initiated sp3 03/12 00:22 Data reviewed: vital signs, nurses notes, lab test result(s), radiologic studies. ED sp3 course: 19-year-old female with no past medical history presents with right upper quadrant and epigastric abdominal pain. Differential diagnosis includes cholecystitis, cholelithiasis, biliary colic, other hepatobiliary pathology, pancreatitis, gastritis, colitis and to a lesser degree UTI/pyelonephritis spectrum, kidney stone and/or chest pathology. I am not highly suspicious of aortic or acute coronary syndrome. Workup include general labs, ultrasound right upper quadrant and CT abdomen pelvis with IV contrast. Disposition pending workup and patient course. Patient declined pain medication at this time.. 03:39 ED course: Full workup negative. We will safely discharge patient home.. sp3 03/12 00:05 Order name: CBC with Diff; Complete Time: : sp3 03/12 00:05 Order name: CMP; Complete Time: : sp3 03/12 00:05 Order name: Lipase; Complete Time: : sp3 03/12 00:05 Order name: Test, Urine; Complete Time: : sp3 03/12 00:05 Order name: Urinalysis w/ reflexes; Complete Time: : sp3 03/12 00:05 Order name: Abdomen Limited US; Complete Time: 03:37 sp3 03/12 00:05 Order name: CT Abd/Pelvis - IV Contrast Only sp3 03/12 00:05 Order name: IV Saline Lock; Complete Time: 00:15 sp3 03/12 00:05 Order name: Labs collected and sent; Complete Time: 00:15 sp3 Administered Medications: 00:15 Drug: NS 0.9% IV 1000 ml IV at 1 bolus Per protocol; to be given as a bolus over 60 cp4 minutes Route: IV; Rate: 1 bolus; Site: left antecubital; 03:51 Follow up: IV Status: Completed infusion cp4 Disposition Summary: 03/12/25 03:39 Discharge Ordered Notes: Location: Home sp3 Condition: Stable sp3 Diagnosis - Abdominal pain sp3 Followup: sp3 - With: Private Physician - When: Upon discharge from the Emergency Department - Reason: Continuance of care Discharge Instructions: - Discharge Summary Sheet sp3 - Abdominal Pain, Adult sp3 Forms: - Medication Reconciliation Form sp3 - Antibiotic Education sp3 - Prescription Opioid Use sp3 - Patient Portal Instructions sp3 - Leadership Thank You Letter sp3 Prescriptions: - Tramadol 50 mg Oral Tablet - take 1 tablet ORAL route every 8 hours as needed; 12 tablet; Refills: 0, sp3 Product Selection Permitted Signatures: Dispatcher [employer] EDTalia Silva MD MD sp3 Lilia Trotter RN RN [facility] Kiya Tse cp4 Corrections: (The following items were deleted from the chart) 00:05 00:05 CBC+H.LAB.BRZ ordered. EDMS EDMS 00:05 00:05 COMPREHENSIVE METABOLIC PANEL+C.LAB.BRZ ordered. EDMS EDMS 00:05 00:05 LIPASE+C.LAB.BRZ ordered. EDMS EDMS 00:05 00:05 Test, Urine+UC.LAB.BRZ ordered. EDMS EDMS 00:05 00:05 Urinalysis+U.LAB.BRZ ordered. EDMS EDMS 00:05 00:05 Abdomen Limited+US.RAD.BRZ ordered. EDMS EDMS 00:05 00:05 Abdomen Pelvis W Con+CT.RAD.BRZ ordered. EDMS EDMS
[2025-03-12 04:03] VITALS: TEMP 98.2
[2025-03-12 04:20] VITALS: BP 121/71; O2SAT 99
--- NOTE | 2025-03-12 06:14 | RAD REPORT ---
EXAM DESCRIPTION: Abdomen Pelvis W Contrast RadLex: CT ABDOMEN PELVIS WITH IV CONTRAST CLINICAL HISTORY: 19 years Female; epigastric and RUQ pain;Abd pain; IV ONLY Bed Name: 5 TECHNIQUE: CT of the abdomen and pelvis [with] intravenous contrast. All CT scans at this facility use dose modulation, iterative reconstruction, and/or weight based dosi ng when appropriate to reduce radiation dose to as low as reasonably achievable. COMPARISON: None. FINDINGS: Lower thorax: Lung bases are clear Abdomen: Stomach: Within normal limits Liver: No focal lesions. No intrahepatic ductal distention. Gallbladder: Nondistended Pancreas: Within normal limits Spleen: Within normal limits Right kidney: No hydronephrosis. No focal lesion. Left kidney: No hydronephrosis. No focal lesion. Adrenal glands: Within normal limits Vascular structures: Within normal limits Nodes: No lymphadenopathy by size criteria Pelvis: Small bowel: No significant distention. Appendix: Within normal limits Colon: No distention or acute pericolonic edema. Peritoneum: No free air. Trace free fluid in the pelvis. Bones: No acute bone findings. Bladder: Unremarkable. Reproductive organs: No acute findings. IMPRESSION: 1. No acute abdominopelvic findings. 2. Trace free fluid in the pelvis, likely physiologic. Electronically signed by: Brijesh Sierra MD 03/12/2025 03:03 AM CDT RP TYG Due to temporary technical issues with the [employer] reporting system, reports are being andra d by the in-house radiologist without review as a courtesy to ensure prompt reporting the interpreting radiologist is fully responsible for the content of the report. Transcribed Date/Time: 03/12/2025 6:13 AM
== END 2025-03-12 03:51 | disposition home or self-care (01) ==
LOC: ER 23:37
DX: R10.13 Epigastric pain (principal)
CPT/HCPCS: 96361; 85025; 81001; 36415; 81025; 83690; 80053; 74177; 76705; 96360; 99284; Q9967; J7030